=== PATIENT | male | born 1965 | race Caucasian/White ===

== ENCOUNTER 2018-11-19 07:55 | Day surgery (SDC) | payer OTHER ==
[2018-11-18 15:29] VITALS: BMI 35.5
--- NOTE | 2018-11-18 16:35 | RADRPT ---
Vent Rate: 64 bpm RR Interval: 940 msec [place] Interval: 172 msec QRS Duration: 92 msec QT Interval: 416 msec QTC Interval: 429 msec P-R-T [place]: 32 - 35 - 28 degrees Sinus rhythm...normal P axis, V-rate 50- 99 Electronically Signed By: José Miguel Bailey
[~2018-11-19] VITALS: Ht 175.3 cm; Wt 113.3 kg
[2018-11-19] VITALS (15 sets, daily range): BP systolic 104–136; BP diastolic 56–91; PULSE 60–72; RESP 7–19; Ht 175.3 cm; Wt 113.3 kg
[~2018-11-19 07:55] MED LIST: SEVOFLURANE 15 MIN ONE
--- NOTE | 2018-11-19 08:32 | HPN ---
Date/Time of Note Date/Time of Note DATE: 11/19/18 TIME: 08:31 Interval H&P Admission Note Pt. seen H&P reviewed: No system changes OTILIA ABERNATHY Nov 19, 2018 08:31
[2018-11-19] MEDS ORDERED: LACTATED RINGER'S 1,000 ML IV SCH (10:00)
--- NOTE | 2018-11-19 10:43 | PREAC ---
Date/Time of Note Date/Time of Note DATE: 11/19/18 TIME: 10:42 Anesthesia Eval and Record Evaluation Time Pre-Procedure Interview DATE: 11/19/18 TIME: 10:42 Age 52 Sex male NPO: 8 hrs Preoperative diagnosis left ring finger fracture Planned procedure orif left ring finger fracture, repair of tendon Past Medical History Past Medical History: Includes GI: Obesity Surgery & Anesthesia Issues No known issue Meds Anticoagulation: No Beta Meri within 24 hr: No Reason Beta Meri not given: Pt. not on B-Meri No Active Prescriptions or Reported Meds Current Medications Lactated Ringer's 1,000 ml @ 0 mls/hr Q0M IV Last administered on 11/19/18at 09:45; Admin Dose 0 MLS/HR; Start 11/19/18 at 10:00 Meds reviewed: Yes Allergies Coded Allergies: No Known Allergy (Unverified , 11/19/18) Allergies Reviewed: Yes Labs/Studies Labs Reviewed: Reviewed by anesthesiologist Result Diagram: 11/18/1891411/18/18914 test: N/A Pre-procedure Exam Last vitals Vital Signs Date Temp Pulse Resp B/P (MAP) Pulse Ox O2 O2 Flow FiO2 Time Delivery Rate 11/19/18 97.3 72 16 131/80 94 Room Air 09:32 (97) Airway: Adequate mouth opening, Adequate thyromental dist Mallampati: Mallampati I Teeth: Normal Lung: Normal Heart: Normal ASA Physical Status ASA physical status: 2 Emergency: None Planned Anesthetic General/MAC: LMA Planned Pain Management Parenteral pain med Pre-operative Attestations Prior to commencing anesthesia and surgery, the patient was re-evaluated, there was verification of: *The patient's identity *The results of appropriate recent lab work and preoperative vital signs *The above evaluation not changing prior to induction *Anesthetic plan, risk benefits, alternative and complications discussed with patient/family; questions answered; patient/family understands, accepts and wishes to proceed. ATA NOBLE Nov 19, 2018 10:43
[2018-11-19] MEDS ORDERED: PROPOFOL 20 ML ONE (10:55)
[2018-11-19] MEDS ORDERED: ROCURONIUM 50 MG INJ ONE (10:58)
[2018-11-19] MEDS ORDERED: CEFAZOLIN 1 GM INJ ONE (10:58)
[2018-11-19] MEDS ORDERED: LIDOCAINE 2% (SDV) 5 ML INJ ONE (10:58)
[2018-11-19] MEDS ORDERED: BUPIVACAINE 0.5% (SDV) 30 ML INJ ONE (11:05)
[2018-11-19] MEDS ORDERED: LIDOCAINE 1% (MPF) 30 ML INJ ONE (11:05)
[2018-11-19] MEDS ORDERED: DEXAMETHASONE 4 MG/ML 5 ML INJ ONE (11:27)
[2018-11-19] MEDS ORDERED: ONDANSETRON 4 MG INJ ONE (11:27)
[2018-11-19] MEDS ORDERED: NEOSTIGMINE 3 MG/3 ML SYRINGE ONE (12:04)
[2018-11-19] MEDS ORDERED: GLYCOPYRROLATE 0.4 MG INJ ONE (12:04)
--- NOTE | 2018-11-19 12:19 | OPPN ---
Date/Time of Note Date/Time of Note DATE: 11/19/18 TIME: 12:18 Operative Report Preoperative Diagnosis Left ring finger distal phalanx fracture, intra-articular, comminuted Left ring finger FDP distal avulsion/rupture Postoperative Diagnosis Left ring finger distal phalanx fracture, intra-articular, comminuted Left ring finger FDP distal avulsion/rupture Operation/Procedure Performed ORIF Left ring finger distal phalanx fracture, intra-articular, comminuted, Repair of Left ring finger FDP distal avulsion/rupture Surgeon see signature line chiropractic assistant none Anesthesia: general Estimated blood loss: 0 - 10 ml's Transfusion Required none Specimen none Grafts/Implants none Complications none OTILIA ABERNATHY Nov 19, 2018 12:19
--- NOTE | 2018-11-19 12:22 | PAC ---
Date/Time of Note Date/Time of Note DATE: 11/19/18 TIME: 12:21 Post-Anesthesia Notes Post-Anesthesia Note Last documented vital signs Vital Signs Date Temp Pulse Resp B/P (MAP) Pulse Ox O2 O2 Flow FiO2 Time Delivery Rate 11/19/18 97.3 72 16 131/80 94 Room Air 1221 (97) Activity: WNL Respiratory function: WNL Cardiovascular function: WNL Mental status: Baseline Pain reasonably controlled: Yes Hydration appropriate: Yes Nausea/Vomiting absent: Yes ATA NOBLE Nov 19, 2018 12:21
[2018-11-19] MEDS ORDERED: KETOROLAC 30 MG INJ IV PRN (12:30)
[2018-11-19] MEDS ORDERED: METOCLOPRAMIDE 10 MG INJ IV PRN (12:30)
[2018-11-19] MEDS ORDERED: hydrALAzine 20 MG INJ IV PRN (12:30)
[2018-11-19] MEDS ORDERED: MEPERIDINE 25 MG INJ IV PRN (12:30)
[2018-11-19] MEDS ORDERED: LABETALOL HCL 20MG INJ IV PRN (12:30)
[2018-11-19] MEDS ORDERED: OXYCODONE/ACETAMINOPHEN (5/325) TAB PO PRN ×2 (12:30)
[2018-11-19] MEDS ORDERED: DIPHENHYDRAMINE 50 MG INJ IV PRN (12:30)
[2018-11-19] MEDS ORDERED: ONDANSETRON 4 MG INJ IV PRN (12:30)
[2018-11-19] MEDS ORDERED: ALBUTEROL 0.083% (NEB) 2.5 MG/3 ML AMP HHN PRN (12:30)
[2018-11-19] MEDS ORDERED: FENTAnyl 50 MCG/ML VIAL IV PRN ×3 (12:30)
[2018-11-19] MEDS ORDERED: EPHEDrine 25 MG/5 ML SYG IV PRN (12:30)
[2018-11-19] MEDS ORDERED: HYDROmorphONE 1 MG/5 ML IV SYRINGE IV PRN ×3 (12:30)
--- NOTE | 2018-11-19 13:18 | OPR ---
DATE OF OPERATION: 11/19/2018 ANESTHESIA: General plus local. PREOPERATIVE DIAGNOSES: 1. Left ring finger distal phalanx fracture, intraarticular, comminuted, displaced. 2. Left ring finger flexor digitorum profundus rupture. POSTOPERATIVE DIAGNOSES: 1. Left ring finger distal phalanx fracture, intraarticular, comminuted, displaced. 2. Left ring finger flexor digitorum profundus rupture. PROCEDURES: 1. Open reduction and internal fixation, left ring finger distal phalanx fracture, intraarticular, c omminuted. 2. Open repair of left ring finger, flexor digitorum profundus tendon avulsion/rupture with K wire f ixation of the bony fragments to the distal phalanx. OPERATIVE FINDINGS: Displaced left ring finger distal phalanx fracture, intraarticular, displaced wi th rupture of the FDP tendon with proximal retraction. INDICATION FOR PROCEDURE: A 52-year-old male with injury of left ring finger, failed conservative me asures and was seen in clinic and diagnosed with displaced fracture. We discussed the options. The patient elected to proceed with surgical intervention, understanding risks and benefits. DESCRIPTION OF PROCEDURE: The patient was seen in the preoperative area. All further questions were answered. Again, he gave informed consent, understanding risks and benefits. He was taken to opera tive suite, placed in supine position. He was placed under general anesthesia and tourniquet was berkley jeanmarie in left upper extremity. Left upper extremity was prepped with ChloraPrep stick and draped in [facility] sterile fashion. Ancef 2 grams IV were given and Esmarch bandage was used to exsanguinate the ex tremity and tourniquet was inflated to 250 mmHg. Attempt was made at a closed reduction, which was u nsuccessful given the multiple fragments and timing of the injury. Decision was made to proceed with open reduction and internal fixation. A volar zigzag incision was made at the left ring finger dist al interphalangeal joint with sharp dissection carried down through skin and subcutaneous tissue. So ft tissue flap was elevated and the FDP tendon along with the bony fragment was identified volarly as well as a large dorsal fragment and comminution of the distal phalanx fracture. Attention was first turned to open reduction and internal fixation of the distal phalanx intraarticular fracture. A 0.0 35 K-wire was driven retrograde from the distal fragment into the proximal fragment and across the di stal interphalangeal joint. This secured the dorsal fragment as well as the distal fragment. I then turned my attention to the FDP avulsion distally with a bony fragment. A decision was made to use K wire fixation to repair the avulsion of the tendon and the bony fragment and tendon were reduced int o a more anatomic position and multiple 0.035 K-wires were used to secure the fracture fragment and t endon into a more anatomic position. The pins were cut short. Next, imaging showed appropriate repl acement and showed improved bony alignment with hardware placement. Wound was copiously irrigated. Skin was closed with 5-0 nylon. Xeroform was placed over the wound followed by sterile gauze, Webril and short arm dorsal blocking splint to the tips of the fingers. Tourniquet was deflated after 34 m inutes. The patient was awakened from anesthesia. He was taken to postoperative suite in stable con dition, tolerated the procedure well without complication. SPECIMENS: None. ESTIMATED BLOOD LOSS: 5 mL. COUNTS: Sponge, instrument and needle counts correct. TOURNIQUET TIME: 34 minutes. CONDITION ON DISCHARGE: Stable. The patient will be given nonrefillable 5-day prescription of pain medication for surgery today. Dictated By: OTILIA MARIO/HOLLY Conf#: [id number] DID#: [id number]
== END 2018-11-19 13:58 | disposition home or self-care (01) ==
LOC: SDS 07:55
PROVIDERS: ATTEND Orthopaedic Surgery Hand Surgery
DX: S62.635A Displaced fracture of distal phalanx of left ring finger, initial encounter for closed fracture (principal); S66.115A Strain of flexor muscle, fascia and tendon of left ring finger at wrist and hand level, initial encounter; X58.XXXA Exposure to other specified factors, initial encounter
CPT/HCPCS: 26370; 71045; 73130; 80048; 85025; 85610; 85730; 93005; C1713; J0690; J1100; J2405; J2710; J3010; Z7512; Z7610

== ENCOUNTER 2018-12-31 15:59 | Day surgery (SDC) | payer OTHER ==
[2018-12-31] VITALS (16 sets, daily range): BP systolic 101–124; BP diastolic 68–81; PULSE 51–79; RESP 12–32; Ht 177.8 cm; Wt 112.1 kg
[~2018-12-31] VITALS: Ht 177.8 cm; Wt 112.1 kg
[~2018-12-31 15:59] MED LIST changes: +EPHEDrine 25 MG/5 ML SYG ONE
--- NOTE | 2018-12-31 16:27 | PREAC ---
Date/Time of Note Date/Time of Note DATE: 12/31/18 TIME: 16:25 Anesthesia Eval and Record Evaluation Time Pre-Procedure Interview DATE: 12/31/18 TIME: 16:25 Age 53 Sex male NPO: 8 hrs Preoperative diagnosis retained hardware left ring finger distal phalaynx at three locations Planned procedure removal of retained hardware left ring finger distal phalaynx at three locations Past Medical History Past Medical History: None GI: Obesity Surgery & Anesthesia Issues No known issue Meds Anticoagulation: No Beta Meri within 24 hr: No Reason Beta Meri not given: Pt. not on B-Meri No Active Prescriptions or Reported Meds Meds reviewed: Yes Allergies Coded Allergies: No Known Allergy (Unverified , 11/19/18) Allergies Reviewed: Yes Labs/Studies Labs Reviewed: Reviewed by anesthesiologist Result Diagram: 12/30/1843 12/30/18942 test: N/A Pre-procedure Exam Airway: Adequate mouth opening, Adequate thyromental dist Mallampati: Mallampati II Teeth: Normal Lung: Normal Heart: Normal ASA Physical Status ASA physical status: 2 Emergency: None Planned Anesthetic General/MAC: LMA Planned Pain Management Parenteral pain med, Local by surgeon Pre-operative Attestations Prior to commencing anesthesia and surgery, the patient was re-evaluated, there was verification of: *The patient's identity *The results of appropriate recent lab work and preoperative vital signs *The above evaluation not changing prior to induction *Anesthetic plan, risk benefits, alternative and complications discussed with patient/family; questions answered; patient/family understands, accepts and wishes to proceed. ANTON DUENAS MD Dec 31, 2018 16:26
[2018-12-31] MEDS ORDERED: LACTATED RINGER'S 1,000 ML IV SCH (17:00)
[2018-12-31] MEDS ORDERED: LIDOCAINE 1% (MPF) 30 ML INJ ONE (17:42)
[2018-12-31] MEDS ORDERED: BUPIVACAINE 0.5% (SDV) 30 ML INJ ONE (17:42)
--- NOTE | 2018-12-31 18:37 | HPN ---
Date/Time of Note Date/Time of Note DATE: 12/31/18 TIME: 18:37 Interval H&P Admission Note Pt. seen H&P reviewed: No system changes OTILIA ABERNATHY Dec 31, 2018 18:37
[2018-12-31] MEDS ORDERED: MIDAZOLAM 1 MG/ML 2 ML INJ ONE (20:22)
[2018-12-31] MEDS ORDERED: CEFAZOLIN 1 GM INJ ONE (20:22)
[2018-12-31] MEDS ORDERED: PROPOFOL 20 ML ONE (20:22)
[2018-12-31] MEDS ORDERED: ONDANSETRON 4 MG INJ ONE (20:30)
[2018-12-31] MEDS ORDERED: DEXAMETHASONE 4 MG/ML 5 ML INJ ONE (20:30)
[2018-12-31] MEDS ORDERED: METOCLOPRAMIDE 10 MG INJ ONE (20:30)
[2018-12-31] MEDS ORDERED: KETOROLAC 30 MG INJ ONE (20:30)
[2018-12-31] MEDS ORDERED: OXYCODONE/ACETAMINOPHEN (5/325) TAB PO PRN (21:00)
[2018-12-31] MEDS ORDERED: HYDROmorphONE 1 MG/5 ML IV SYRINGE IV PRN ×2 (21:00)
[2018-12-31] MEDS ORDERED: FENTAnyl 50 MCG/ML VIAL IV PRN (21:00)
[2018-12-31] MEDS ORDERED: ONDANSETRON 4 MG INJ IV PRN (21:00)
[2018-12-31] MEDS ORDERED: MEPERIDINE 25 MG INJ IV PRN (21:00)
[2018-12-31] MEDS ORDERED: PROCHLORPERAZINE 10 MG INJ IV PRN (21:00)
[2018-12-31] MEDS ORDERED: DIPHENHYDRAMINE 50 MG INJ IV PRN (21:00)
--- NOTE | 2018-12-31 21:01 | OPPN ---
Date/Time of Note Date/Time of Note DATE: 12/31/18 TIME: 21:00 Operative Report Preoperative Diagnosis retained hardware left ring finger distal, radial, ulnar and volar aspects Postoperative Diagnosis retained hardware left ring finger distal, radial, ulnar and volar aspects Operation/Procedure Performed removal of deep retained hardware left ring finger distal, radial, ulnar and volar aspects Surgeon see signature line branch assistant none Anesthesia: general Estimated blood loss: 0 - 10 ml's Transfusion Required none Specimen k wires x4 Grafts/Implants none Complications none OTILIA ABERNATHY Dec 31, 2018 21:01
[2018-12-31] MEDS ORDERED: BUPIVACAINE 0.5% (SDV) 30 ML INJ INJ ONE (21:12)
--- NOTE | 2018-12-31 21:14 | PAC ---
Date/Time of Note Date/Time of Note DATE: 12/31/18 TIME: 21:14 Post-Anesthesia Notes Post-Anesthesia Note Last documented vital signs Vital Signs Date Temp Pulse Resp B/P (MAP) Pulse Ox O2 O2 Flow FiO2 Time Delivery Rate 12/31/18 98.4 79 18 124/81 97 16:59 (95) Activity: WNL Respiratory function: WNL Cardiovascular function: WNL Mental status: Baseline Pain reasonably controlled: Yes Hydration appropriate: Yes Nausea/Vomiting absent: Yes Comments BP: 118/75 HR: 69 RR: 15 T: 98 SaO2: 100% ANTON DUENAS MD Dec 31, 2018 21:14
--- NOTE | 2019-01-01 01:56 | OPR ---
DATE OF OPERATION: 12/31/2018 SURGEON: Otilia Roman MD ANESTHESIA: General. PREOPERATIVE DIAGNOSIS: 1. Retained deep hardware, left ring finger distal phalanx, distal aspect. 2. Retained deep hardware, left ring finger, radial aspect. 3. Deep retained hardware, left ring finger, ulnar aspect. 4. Deep retained hardware, left ring finger, volar aspect. POSTOPERATIVE DIAGNOSIS: 1. Retained deep hardware, left ring finger distal phalanx, distal aspect. 2. Retained deep hardware, left ring finger, radial aspect. 3. Deep retained hardware, left ring finger, ulnar aspect. 4. Deep retained hardware, left ring finger, volar aspect. PROCEDURE: 1. Removal of deep retained hardware, left ring finger distal aspect of the distal phalanx. 2. Removal of deep retained hardware, left ring finger radial aspect of the distal phalanx. 3. Removal of deep retained hardware, left ring finger ulnar aspect at the distal phalanx. 4. Removal of deep retained hardware, left ring finger at the volar aspect. OPERATIVE FINDINGS: Deep buried K-wires x4. INDICATION FOR PROCEDURE: A 53-year-old male with injury to left ring finger was seen in clinic and diagnosed with a displaced intra-articular fracture of the ring finger distal phalanx with avulsion o f the flexor tendon. We discussed the options and the patient elected to proceed with surgical inter vention. He had fixation with multiple buried K-wires and required return to the operating room. Th e patient elected to proceed with removal of hardware, understanding the risks and benefits. DESCRIPTION OF PROCEDURE: The patient was seen in the preoperative area and all further questions we re answered. Again, he gave informed consent, understanding the risks and benefits. He was taken to operative suite and placed in supine position. He was placed under general anesthesia and Ancef 2 g amilcar IV given. Tourniquet placed in left upper extremity and left upper extremity was prepped with C hloraPrep stick and draped in usual sterile fashion. Esmarch bandage was used to exsanguinate the ex tremity and tourniquet inflated to 250 mmHg. Attention was first turned to the distal aspect of the left ring finger and the deep buried K-wire was identified at the distal aspect of the distal phalanx . X-ray imaging localized the K-wire and a 15 blade knife was used to make sharp dissection through skin and subcutaneous tissue. Tenotomy scissor divided the soft tissues overlying the K-wire which w as then removed with a needle customer service driver. Attention was turned to the volar aspect of the left ring fing er. K-wire was identified under x-ray imaging and 15 blade knife used to make dissection through ski n and subcutaneous tissue. Tenotomy scissors debrided the soft tissues overlying the deep buried benjamin dware which was removed with a needle customer service driver. Attention was turned to the ulnar aspect of the left r ing finger and a separate incision was made with sharp dissection through skin and subcutaneous tissu e. The deep buried hardware was identified and removed using a needle customer service driver. Attention was turned to the radial aspect and a separate incision was made and a sharp dissection was carried down through skin and subcutaneous tissue. Tenotomy scissors debrided the soft tissues overlying the deep buried hardware which was removed with a needle customer service driver. Wounds were copiously irrigated. Skin closed with 5-0 nylon. X-ray imaging showed interval removal of hardware. Xeroform placed over the wounds foll owed by sterile gauze, Webril, and a Coban dressing. Tourniquet deflated after 19 minutes. The elizabeth ent was awakened from anesthesia. He was taken the postoperative suite in stable condition, tolerate d the procedure well without complication. SPECIMENS: K-wire x4. ESTIMATED BLOOD LOSS: 5 mL. COUNTS: Sponge, instrument, needle counts correct. TOURNIQUET TIME: 19 minutes. CONDITION ON DISCHARGE: Stable. The patient was given a nonrefillable 5-day prescription for pain medication for surgery today. Dictated By: OTILIA MARIO/HOLLY Conf#: [id number] DID#: [id number]
--- NOTE | 2019-01-02 16:12 | RADRPT ---
Vent Rate: 68 bpm RR Interval: 888 msec [place] Interval: 179 msec QRS Duration: 98 msec QT Interval: 408 msec QTC Interval: 433 msec P-R-T [place]: 51 - 15 - 27 degrees Sinus rhythm...normal P axis, V-rate 50- 99 Electronically Signed By: Ian Saldaña
== END 2018-12-31 22:40 | disposition home or self-care (01) ==
LOC: SDS 15:59
PROVIDERS: ATTEND Orthopaedic Surgery Hand Surgery
DX: Z47.2 Encounter for removal of internal fixation device (principal)
CPT/HCPCS: 26320; 71045; 73140; 80048; 85025; 85610; 85730; 93005; J0690; J1100; J1885; J2250; J2405; J2765; J3010; Z7512; Z7610; 88300